=== PATIENT | female | born 1965 | race Caucasian/White ===

== ENCOUNTER 2018-04-10 21:15 | Emergency (ER) | payer OTHER ==
[~2018-04-10] VITALS: Ht 172.7 cm; Wt 68.0 kg
[~2018-04-10 21:15] MED LIST: FISH OIL 1,2001 EAC3; JANUVIA; LIPITOR20 MG; METFORMIN; PROTONIX40 M2; ZOLOFT 50 MG TA50 M1
[2018-04-10] MEDS ORDERED: LANTUS100 UNIT/M (21:45)
[2018-04-10] MEDS ORDERED: SINGULAIR 10 MG10 M1 (21:46)
[2018-04-10] MEDS ORDERED: LAMOTRIGINE100 M1 (21:46)
[2018-04-10] MEDS ORDERED: LISINOPRIL5 MG (21:47)
[2018-04-10] MEDS ORDERED: PROTONIX40 M1 (21:47)
[2018-04-10] MEDS ORDERED: ATORVASTATIN CA40 MG (21:47)
[2018-04-10] MEDS ORDERED: JANUMET 50-1,01 EACH (21:47)
[2018-04-10] MEDS ORDERED: ASPIR 8181 MG (21:48)
[2018-04-10] MEDS ORDERED: MOBIC7.5 MG (21:48)
[2018-04-10] MEDS ORDERED: MEDROLDOSEPACK PO (22:03)
[2018-04-10 22:13] VITALS: BP 144/80
== END 2018-04-10 22:14 | disposition home or self-care (01) ==
LOC: M.ERS 21:15
DX: L23.7 Allergic contact dermatitis due to plants, except food (principal); E11.9 Type 2 diabetes mellitus without complications; F17.210 Nicotine dependence, cigarettes, uncomplicated; Z88.6 Allergy status to analgesic agent; Z88.5 Allergy status to narcotic agent; Z88.2 Allergy status to sulfonamides; Z88.1 Allergy status to other antibiotic agents; Z88.7 Allergy status to serum and vaccine; Z88.8 Allergy status to other drugs, medicaments and biological substances; Z90.710 Acquired absence of both cervix and uterus

== ENCOUNTER 2018-10-09 11:13 | Emergency (ER) | payer OTHER ==
[~2018-10-09] VITALS: Ht 172.7 cm; Wt 66.7 kg
[~2018-10-09 11:13] MED LIST changes: +ASPIR 8181 MG; +ATORVASTATIN CA40 MG; +JANUMET 50-1,01 EACH; +LAMOTRIGINE100 M1; +LANTUS100 UNIT/M; +LISINOPRIL5 MG; +MEDROLDOSEPACK PO; +MOBIC7.5 MG; +PROTONIX40 M1; +SINGULAIR 10 MG10 M1
[2018-10-09 11:55] LABS: URINE BILIRUBIN NEGATIVE (Negative); URINE BLOOD 3+ (Negative); URINE CLARITY CLEAR; URINE COLOR YELLOW; URINE GLUCOSE-RANDOM NEGATIVE (Negative); URINE KETONES NEGATIVE (Negative); URINE LEUKOCYTES-REFLEX TRACE (Negative); URINE NITRITE-REFLEX NEGATIVE (Negative); URINE PROTEIN NEGATIVE (Negative); URINE SPECIFIC GRAVITY >= 1.030 (1.005-1.030); URINE UROBILINOGEN 0.2 E.U./dl (0.2-1.0)
[2018-10-09 12:06] LABS: BACTERIA-REFLEX 1-9 Few /HPF (None Seen); CASTS None Seen /LPF (None Seen); CRYSTALS None Seen /LPF (None Seen); MUCUS None Seen strn/LPF (None Seen); SQUAMOUS 4-10 Moderate /LPF (0-3); URINE WBC-REFLEX 0-5 Rare /HPF (0-5)
[2018-10-09 12:33] LABS: ABSOLUTE EOSINOPHILS 0.1 thou/uL (0.0-0.7); ABSOLUTE LYMPHOCYTES 1.7 thou/uL (0.8-5.3); ABSOLUTE MONOCYTES 0.4 thou/uL (0.0-1.2); ABSOLUTE NEUTROPHILS 8.1 thou/uL (1.6-8.1); BASOPHILS 0.3 %; HEMATOCRIT 37.3 % (37.0-47.0); HEMOGLOBIN 12.8 gm/dL (12.0-15.0); LYMPHOCYTES 16.1 %; MCH 27.5 pg (26.0-34.0); MCHC 34.2 g/dL (28.0-37.0); MCV 80.4 fL (80.0-100.0); MONOCYTES 4.3 %; MPV 7.7 fl. (7.2-11.1); NUCLEATED RBCS 0 /100WBC; PLATELET COUNT* 280 thou/uL (150-400); POLYS 78.3 %; RBC 4.64 mil/uL (4.20-5.00); WBC 10.3 thou/uL (4.0-11.0)
[2018-10-09 12:47] LABS: ALBUMIN 3.6 g/dL (3.4-5.0); CALCIUM 9.4 mg/dL (8.5-10.1); CREATININE 0.9 mg/dL (0.6-1.3); POTASSIUM 3.1 mmol/L (3.5-5.1); TOTAL BILIRUBIN 0.6 mg/dL (<0.1-1.0); TOTAL PROTEIN 7.5 g/dL (6.4-8.2)
[2018-10-09] MEDS ORDERED: KEFLEX500 M1 PO (12:55)
[2018-10-09 13:02] VITALS: BP 148/90
== END 2018-10-09 13:03 | disposition home or self-care (01) ==
LOC: M.ERS 11:13
PROVIDERS: Emergency Medicine Emergency Medical Services; Nurse Practitioner Family
DX: N39.0 Urinary tract infection, site not specified (principal); E87.6 Hypokalemia; E11.9 Type 2 diabetes mellitus without complications; F17.210 Nicotine dependence, cigarettes, uncomplicated; Z88.6 Allergy status to analgesic agent; Z88.2 Allergy status to sulfonamides; Z88.1 Allergy status to other antibiotic agents; Z88.8 Allergy status to other drugs, medicaments and biological substances; Z90.710 Acquired absence of both cervix and uterus; Z79.4 Long term (current) use of insulin